=== PATIENT | male | born 1975 | race Hispanic/Latino ===

== ENCOUNTER 2021-10-14 09:13 | Inpatient (IN) | payer OTHER, SELFPAY ==
[2021-10-14] VITALS (11 sets, daily range): BP systolic 127–151; BP diastolic 83–101; PULSE 78–104; RESP 15–16; TEMP 36.1–37; O2SAT 96–99; BMI 36.1
--- NOTE | ~2021-10-14 | US_ITS ---
EXAMINATION: US venous doppler LE EXAM DATE: 10/15/2021 17:22 INDICATION: Chest pain, chest discomfort. r/o dvt TECHNIQUE: Multiple grayscale, color flow and Doppler images of the lower extremity deep venous syste ms bilaterally were obtained and reviewed. There is no prior study for comparison. FINDINGS: RIGHT SIDE Common femoral: --------Not evaluated (bandage from recent procedure). Profunda femoral: ------- Normal. Femoral: Normal. Popliteal: Normal. Posterior tibial: --------- Normal. Peroneal: Normal. Gastrocnemius: Not visualized. Soleus: Not visualized. Greater saphenous: -----Not evaluated. Lesser saphenous: ------ Not visualized. LEFT SIDE Common femoral: -------- Normal. Profunda femoral: ------- Normal. Femoral: Normal. Popliteal: Normal. Posterior tibial: --------- Normal. Peroneal: Normal. Gastrocnemius: Not visualized. Soleus: Not visualized. Greater saphenous: ----- Normal. Lesser saphenous: ------ Not visualized. IMPRESSION: 1. No evidence of lower extremity deep venous thrombosis bilaterally. 2. Right common femoral and greater saphenous veins not evaluated due to bandage from recent vascula r access site. Reviewed, dictated and finalized at location G. OW FABRIC CALENDERER IMPRESSION: 1. No evidence of lower extremity deep venous thrombosis bilaterally. 2. Right common femoral and greater saphenous veins not evaluated due to hutchins ge from recent vascular access site.
--- NOTE | ~2021-10-14 | US_ITS ---
EXAMINATION: US abdomen limited DATE: 10/16/2021 08:56 INDICATION: Elevated liver function tests. TECHNIQUE: Multiple grayscale and Doppler ultrasound images of the abdomen were obtained. COMPARISON: None FINDINGS: The pancreatic head and body are normal in appearance. The pancreatic tail is not visualized. Liver has normal contour, with a smooth surface. There is increased parenchymal echogenicity and coarsened echotexture consistent with diffuse hepatic steatosis. No liver lesion identified. No intrahepatic b iliary duct dilation suspected. Portal venous flow was seen in the hepatopetal, normal direction and has normal Doppler waveform. The gallbladder is normal in appearance. There is no cholelithiasis. Th e common bile duct measures 5 mm, which is normal. Sonographic Godinez sign was reported as negative b y the podiatric surgeon.The visualized proximal inferior vena cava is normal. This is portion of the right kidney demonstrates normal echogenicity with no hydronephrosis. IMPRESSION: 1. Diffuse hepatic steatosis. Reviewed, dictated and finalized at location A. TATION TRUCK CLEANER
--- NOTE | ~2021-10-14 | XR_ITS ---
EXAMINATION: XR chest 2V DATE: 10/14/2021 09:32 INDICATION: Chest pain TECHNIQUE: Frontal and lateral views of the chest are obtained COMPARISON: None available FINDINGS: The lungs are free of acute opacities. There is no pleural effusion or pneumothorax. The ca rdiomediastinal silhouette is normal. The visualized bones and soft tissues are unremarkable. IMPRESSION: 1. No acute cardiopulmonary abnormality. Reviewed, dictated and finalized at location A. CAL APPOINTMENT SCHEDULER
--- NOTE | 2021-10-14 09:16 | ECG_ITS ---
Measurements Intervals [place] Rate: 87 P: 18 MN: 148 QRS: -17 QRSD: 102 T: 23 QT: 387 QTc: 466 Interpretive Statements SINUS RHYTHM BORDERLINE R WAVE PROGRESSION, ANTERIOR LEADS BORDERLINE T WAVE ABNORMALITY- INFERIOR LEADS BASELINE ARTIFACT- II, III, AVR, AVF, V2-V6 BORDERLINE ECG Electronically Signed On 10-16-2021 12:26:29 SILVERWARE CLEANER by Jaxon Sherwood D.O.
[2021-10-14 09:48] LABS: Basophils Percent Auto 0.4 % (0.2-1.2); Eosinophils Absolute Auto 0.1 K/mm3 (0-0.3); Eosinophils Percent Auto 1.1 % (0-4.4); Hematocrit 48.6 % (42.0-52.0); Hemoglobin 16.9 g/dL (14.0-18.0); Immature Granulocyte Absolute 0.03 K/mm3 (0.00-0.031); Immature Granulocyte Percent A 0.3 % (0-0.5); Lymphocytes Absolute Auto 3.74 K/mm3 (0.9-3.2); Lymphocytes Percent Auto 33.8 % (18.3-44.2); Mean Corpuscular HGB Conc 34.8 g/dl (32-36); Mean Corpuscular Hemoglobin 32.6 pg (26-34); Mean Corpuscular Volume 93.6 fl (80-100); Mean Platelet Volume 9.8 fl (7.4-10.4); Monocytes Absolute Auto 0.7 K/mm3 (0.1-0.6); Monocytes Percent Auto 6.1 % (2.6-8.5); Neutrophils Absolute Auto 6.5 K/mm3 (1.3-6.7); Neutrophils Percent Auto 58.3 % (45.5-73.1); Platelet Count Result 322 k/mm3 (150-375); Red Blood Count 5.19 M/mm3 (4.6-6.20); White Blood Count 11.1 K/mm3 (4.5-10.0)
[2021-10-14 09:59] LABS: Alanine Aminotransferase 59 U/L (4-50); Albumin Level 4.4 g/dL (3.5-5.1); Alkaline Phosphatase 134 U/L (38-126); Anion Gap 16 mmol/L (8-16); Aspartate Amino Transferase 66 U/L (17-59); Blood Urea Nitrogen 11 mg/dL (9-20); Calcium 9.7 mg/dL (8.4-10.2); Carbon Dioxide 22 mmol/L (22-30); Chloride 99 mmol/L (98-107); Estimated CRCL calculation 114 ml/min; Estimated Glomerular Filt Rate > 60; Glucose 218 mg/dL (65-110); Lipase 83 U/L (23-300); Potassium 3.6 mmol/L (3.4-5.0); Sodium 137 mmol/L (137-145)
[2021-10-14 10:02] LABS: INR 1.1; Prothrombin Time 13.4 Seconds (11.1-14.7)
[2021-10-14 10:03] LABS: Partial Thromboplastin Time 26.4 SECONDS (22.3-36.8)
--- NOTE | 2021-10-14 10:05 | ED.CHESTPAIN ---
HPI - Chest Pain General Chief Complaint: Chest Pain Stated Complaint: CP Time Seen by Provider: 10/14/21 09:42 Source: patient Mode of arrival: ambulatory Limitations: no limitations History of Present Illness HPI narrative: Patient is 46 years old male presents with soreness across chest after drinking 2 sips of ice coffee at 8 AM today. Started suddenly prior to arrival, 8 out of 10, improved to 4 out of 10 at [place]. Patient still feels uncomfortable. History of diabetes, hypertension, hyperlipidemia, quit smoking 2 years ago, strong family history of coronary artery disease Related Data Home Medications Medication Instructions Recorded Confirmed lisinopril 10/14/21 10/14/21 metformin mg 10/14/21 Allergies Allergy/AdvReac Type Severity Reaction Status Date / Time No Known Allergies Allergy Verified 10/14/21 09:25 Review of Systems Review of Systems: CONSTITUTIONAL: Denies fever, chills, or sweats. EYES: Denies visual changes, redness, or discharge. ENT: Denies rhinorrhea, congestion, sore throat, or otalgia. CARDIOVASCULAR: Denies chest pain, palpitations, or edema. RESPIRATORY: Denies cough or dyspnea. GASTROINTESTINAL: Denies abdominal pain, nausea, vomiting, or diarrhea. GENITOURINARY: Denies dysuria or hematuria. SKIN: Denies rash or itching. MUSCULOSKELETAL: Denies back pain, joint pain, or myalgia. NEUROLOGIC: Denies headache, numbness, or weakness. PSYCHIATRIC: Denies anxiety or depression. Exam Narrative: General appearance: Well-developed, well-nourished Skin: Normal color Head: Normocephalic, nontraumatic Eyes: Clear conjunctiva ENT: Oropharynx normal, ears normal, nose normal Neck: Supple, nontender Chest and respiratory: Airway patent, no respiratory distress, no accessory muscle use Heart: Regular rate/rhythm Abdomen: Soft, nontender, no organomegaly, quiet bowel sounds Vascular: Normal peripheral pulses, normal capillary refill. Musculoskeletal: Normal range of motion, nontender back Neurologic: Alert and oriented ?3, SPECIAL PROGRAMS DIRECTOR is normal as tested, no gross motor deficit Course Course Emergency Course: Patient with chest pain prior to arrival EKG showed subtle ST elevation in lead III, Pain was 8 out of 10, improved to 4 out of 10 on arrival to the ED. Patient received aspirin, nitroglycerin sublingual, Lopressor 25 mg orally, and heparin bolus and drip. Dr. Roberts came to the emergency room, patient evaluated, waiting for the second troponin. Patient to be admitted to IMU for further evaluation Reevaluation(s) Reevaluation #1: Patient still having some soreness across the chest like heartburn 4 out of 10 Date: 10/14/21 Time: 10:52 Consultations Consultation #1: Dr. Sanon Date: 10/14/21 Time: 10:50 Consultation #2: Dr. Roberts Date: 10/14/21 Time: 10:50 Vital Signs Vital signs: Vital Signs Temperature 36.1 C L 10/14/21 09:17 Pulse Rate 89 10/14/21 09:17 Respiratory Rate 16 10/14/21 09:17 Blood Pressure 151/101 H 10/14/21 09:17 Pulse Oximetry 97 10/14/21 09:17 Temperature 36.1 C L 10/14/21 09:17 Pulse Rate 102 H 10/14/21 10:50 Respiratory Rate 16 10/14/21 10:45 Blood Pressure 148/101 H 10/14/21 10:45 Pulse Oximetry 96 10/14/21 10:45 MDM - Chest Pain MDM Narrative Medical decision making narrative: Sudden onset of chest pain, differential diagnosis as below Differential Diagnosis Differential diagnosis: Likely pneumothorax, unstable angina pectoris, atypical chest pain, costochondritis, chest pain and other (Pulmonary embolism) Lab Data Result diagrams: 10/14/21 09:38 10/14/21 09:38 Labs: Lab Results 10/14/21 10/14/2110/14
[2021-10-14 10:13] LABS: D Dimer 0.48 ug/mL (<0.48)
[2021-10-14 10:15] LABS: Troponin I 0.049 ng/mL (0.000-0.034)
--- NOTE | 2021-10-14 10:36 | ECG_ITS ---
Rate 96 HI 123 QRSd 91 QT 366 QTc 464 --[place]-- P 39 QRS 35 T 33 SINUS RHYTHM DELAYED PRECORDIAL R/S TRANSITION BORDERLINE ECG Electronically Signed On 10-16-2021 12:26:42 RAW STOCK MACHINE FEEDER by Jaxon KHAN
[2021-10-14] MEDS: ONDANSETRON INJ 4 MG/2 ML VIAL IV PUSH (10:44)
[2021-10-14] MEDS: MORPHINE SULFATE (*CRX) 4 MG/ML INJ IV PUSH (10:48)
[2021-10-14] MEDS: METOPROLOL TARTRATE 50 MG TAB 25 MG PO (10:50)
[2021-10-14] MEDS: HEPARIN SODIUM 5,000 UNITS/ML VIAL 4000 UNITS IV PUSH ×2 (11:01→17:52)
--- NOTE | 2021-10-14 11:02 | PM.CNCAR ---
Assessment and Plan Additional Plan 46-year-old man reporting symptoms of chest pain that of course raise concern regarding his cardiac status given his risk factors for coronary disease. His ECG does not show any evidence of an acute current of injury 1st troponin level is just barely out of normal range. At this point I do not have an argument for emergency angiography. He should be treated with aspirin, beta-blockers nitrates and statins. We will trend his troponins and provide further recommendations when we see that data. Sp Roberts MD [facility] History of Present Illness History of Present Illness Consult date/time: 10/14/21 11:02 Consult reason: chest pain Reason For Visit: CP Narrative: This is a 46-year-old man I am seeing in the emergency room as we have been summoned by the ED staff to make a decision as to whether the patient should go for an emergency coronary angiogram. 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 He was at a local truck stop where he slept during the night. When he got up to have some breakfast he began to have some chest pain. He thought at 1st this was due to a drinking some iced coffee that he had just had and after he belched the discomfort was alleviated. He had episodes of this off and on which caused him more concern regarding his cardiac status and so he eventually decided he should come to the hospital for evaluation because he did not wish to have an acute coronary event while driving over the road truck. In the emergency room he was apparently having severe chest pain when he arrived. He was given some nitroglycerin, morphine and heparin. Upon my arrival to see him he is having some very mild residual pain he says 1/2 over 10 in severity. He appears to be quite comfortable. His admitting electrocardiogram and 2 subsequent repeat studies do not show any evidence of an acute myocardial infarction. There is some very subtle inferior ST segment changes but no reciprocal depression. He is located in ER room 9. Initial lab data demonstrates a troponin level that is barely out of normal limits at 0.04. He does have coronary risk factors including hypertension and diabetes. He takes lisinopril and metformin. He quit smoking several years ago he smoked for 10 or 15 years before that. There is a history of coronary disease in his mother side of the family. No one has of coronary disease at a premature age. Review of Systems Constitutional: Constitutional: Reports no additional constitutional complaints Eyes: Eyes: Reports no additional eye complaints ENT: Reports system reviewed and no additional complaints, except as documented Cardiovascular: Cardiovascular: Reports as per HPI Respiratory: Respiratory: Reports no additional respiratory complaints Gastrointestinal: Gastrointestinal: Reports as per HPI Musculoskeletal: Musculoskeletal: Reports no additional musculoskeletal complaints Integumentary/Breasts: Skin/Breast: Reports system reviewed and no additional complaints, except as docu Neurologic: Reports system reviewed and no additional complaints, except as documented Endocrine: Endocrine: Reports no additional endocrine complaints Hematologic/Lymphatic: Hematologic/Lymphatic: Reports no additional hematologic/lymphatic complaints Allergic/Immunologic: Allergic/Immunologic: Reports no additional allergic/immunologic complaints Meds Home Medications and Allergies Home Medications Medication Instructions Recorded Confirmed Type lisinopril 10/14/21 10/14/21 History metformin mg 10/14/21 History Allergies Allergy/AdvReac Type Severity Reaction Status Date / Time No Known Allergies Allergy Verified 10/14/21 09:25 Vital Signs Vital Signs - 24 hr 10/14/21 09:17 10/14/21 09:45 10/14/21 10:45 Temperature 36.1 C L Pulse Rate 89 87 98 Respiratory Rate 16 16 16 Blood Pressure 151/101
[2021-10-14] MEDS: HEPARIN SOD/D5W 100 UNITS/ML 25,000 UNITS/250 ML BAG 8 UNITS IV CONT (11:08)
--- NOTE | 2021-10-14 11:44 | PC.NURSE ---
Assumed care of pt. Denies any pain currently. Aware of plan for admission and repeat troponins.
[2021-10-14 12:26] LABS: SARS-CoV-2 RNA PCR Negative
--- NOTE | 2021-10-14 13:26 | PM.IMHP ---
H&P: HPI History of Present Illness Date/Time: 10/14/21 13:26 Chief Complaint: chest pain Narrative: Patient is a 46-year-old a history of hypertension and diabetes mellitus type 2. He presented to the emergency department due to chest pain. Patient reports that he went to constipation this morning and was drinking his coffee when he developed sudden chest pain. He was able to drive a short distance primary admitting emergency department. Upon arrival to the emergency department he was administered nitroglycerin, morphine and heparin. He was noted to be tachycardic. Labs and imaging were obtained. WBC 11.1, hemoglobin 16.1, hematocrit 40.6, platelets 322, D-dimer 0.48, sodium 137, potassium 3.6, BUN 11 and creatinine 0.7. Glucose was elevated to 18. Troponin 0.049. Patient with mildly elevated AST 66, ALT 59, alkaline phosphate 134. Patient reported he had history of alcoholism and drink at least a glass of whiskey a day. Reports he stopped drinking approximately 1 year ago. Patient also reports he was a smoker 1 pack a day, quit approximately 1 year ago. Patient reports poor eating habits and notes he is overweight. Imaging reported no acute cardiopulmonary abnormality. EKG did not reveal significant ST abnormality. Cardiology was consulted from the emergency department he suggested starting the patient on aspirin, beta-blockers, nitrates and statins. At this time they do not believe the patient needs an emergency angiography. Patient is being admitted for observation for further evaluation of acute coronary syndrome. 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 Meds Home Medications and Allergies Home Medications Medication Instructions Recorded Confirmed Type lisinopril 10/14/21 10/14/21 History metformin mg 10/14/21 History Allergies Allergy/AdvReac Type Severity Reaction Status Date / Time No Known Allergies Allergy Verified 10/14/21 09:25 Vital Signs Vital Signs - 24 hr 10/14/21 09:17 10/14/21 09:45 10/14/21 10:45 Temperature 36.1 C L Pulse Rate 89 87 98 Respiratory Rate 16 16 16 Blood Pressure 151/101 H 142/97 H 148/101 H Pulse Oximetry 97 98 96 10/14/21 10:50 10/14/21 11:48 Temperature Pulse Rate 102 H 104 H Respiratory Rate 16 Blood Pressure 149/87 H Pulse Oximetry 99 Exam Const: General: cooperative, healthy appearing, well developed, alert, awake and well groomed Nutritional Appearance: obese Orientation/consciousness: patient oriented x3 Limitations: no limitations HENMT: Head: normal to inspection Eyes: General: appearance normal, both eyes and all related structures Conjunctivae: conjunctivae normal Pupils: Equal, round and reactive pupils present EOM: EOMs intact bilaterally Neck: Neck: normal visual inspection and full ROM Thyroid: thyroid normal Lymphatic: no lymphadenopathy noted Chest: Chest palpation & inspection: normal inspection of the chest Resp: Effort & Inspection: normal respiratory effort and able to speak in complete sentences Auscultation: clear to auscultation bilaterally Cardio: Jugular venous distension: no JVD Palpation: normal PMI Rate: tachycardic Rhythm: regular rhythm Heart sounds: S1 normal heart sound present and S2 normal heart sound present Peripheral pulses: Peripheral pulses 2+ throughout GI: Inspection: normal
--- NOTE | 2021-10-14 14:13 | ADMGEN ---
This patient, Edgar Valdivia, was admitted to IMU Room 206-01. Patient/family oriented to hospital policies and general routines including ID bracelet, bed and alarms, visiting hours, pain management, procedures, bathroom and other care routines, personal items, smoking policy, room service/diet, and visiting hours. Information on how to activate the Rapid Response Team has been discussed. Patient/Family are encouraged to report perceived risks to care and to ask questions if they do not understand what they are told or what they should do.
[2021-10-14 16:00] LABS: Glucose Point of Care 139 mg/dl (65-105)
[2021-10-14] MEDS: METOPROLOL TARTRATE 12.5 MG TABLET PO (20:29)
[2021-10-14 21:23] LABS: Glucose Point of Care 199 mg/dl (65-105)
[2021-10-15] VITALS (22 sets, daily range): BP systolic 122–138; BP diastolic 58–99; PULSE 82–110; RESP 15–21; TEMP 36.1–37; O2SAT 94–100
--- NOTE | 2021-10-15 | ECHO_ITS ---
Patient Info Name: Edgar Valdivia Age: 46 years : 1975 Gender: Male Ht: 62 in Wt: 197 lbs BSA: 2.02 m2 HR: 96 bpm BP: 124 / 85 mmHg Exam Date: 10/15/2021 8:32 AM Exam Location: [facility] Patient Status: Outpatient Admit Date: 10/14/2021 Staff Ordering Physician: Marisela Tidwell APRN Barrel Raiser Helper: Callum Godinez, OLLIE, RT Attending Provider: Craig Wong MD Referring Physician: Yaw SOLIS; Exam Type: CA echo doppler color flow Study Info Indications I21.4 - Non-ST elevation (NSTEMI) myocardial infarction Complete two-dimensional, color flow and Doppler transthoracic echocardiogram is performed. Strain analysis performed. Summary 1. Complete two-dimensional, color flow and Doppler transthoracic echocardiogram is performed. 2. Left ventricular systolic function is normal, estimated at 55-60%. 3. The left ventricular diastolic function is grade I diastolic dysfunction. 4. Hypokinesis of apical septum. Left Ventricle Left ventricular chamber dimension is normal. Left ventricular systolic function is normal, estimated at 55-60%. There is no increased left ventricular wall thickness. Left ventricular septal wall motion is normal. The left ventricular diastolic function is grade I diastolic dysfunction. Global longitudinal strain is abnormal at -14 %. Right Ventricle Right ventricular chamber dimension is normal. Right ventricular systolic function is normal. Left Atria Left atrial chamber dimension is normal. Right Atria Right atrial chamber dimension is normal. Atrial Septum Intact interatrial septum visualized by color flow imaging. Aortic Valve The aortic valve is trileaflet. There is no aortic valve sclerosis. There is no aortic valve stenosis. There is no aortic valve regurgitation. Pulmonic Valve The pulmonic valve is normal. There is no pulmonic valve stenosis. There is no pulmonic regurgitation. Mitral Valve The mitral valve has normal leaflets. There is no mitral valve stenosis. There is no mitral valve regurgitation. Tricuspid Valve The tricuspid valve leaflets are normal. There is no significant tricuspid valve stenosis. There is no tricuspid valve regurgitation. Pericardium/Pleural The pericardium appears normal. There is no pericardial effusion. Inferior Vena Cava Normal inferior vena cava with >50% collapse upon inspiration consistent with normal right atrial pressure, 5 mmHg. Aorta The aortic root size at the sinus of Valsalva is normal. The prox ascending aorta size is normal. Left Ventricular Outflow Tract Name Value Normal LVOT Doppler LVOT Peak Gradient 4 mmHg LVOT Mean Gradient 2 mmHg LVOT VTI 16 cm LVOT VTI/AV VTI Ratio 0.7 Mitral Valve Name Value Normal MV Doppler MV Decel [place] 215 cm/s2 MV PHT
[2021-10-15 00:25] LABS: Partial Thromboplastin Time 51.1 SECONDS (22.3-36.8)
[2021-10-15] MEDS: HEPARIN SOD/D5W 100 UNITS/ML 25,000 UNITS/250 ML BAG 14 UNITS IV CONT (00:45)
[2021-10-15] MEDS: HEPARIN SODIUM 5,000 UNITS/ML VIAL 4000 UNITS IV PUSH (00:50)
[2021-10-15 06:45] LABS: Basophils Absolute Auto 0.1 K/mm3 (0.0-0.1); Basophils Percent Auto 0.4 % (0.2-1.2); Eosinophils Absolute Auto 0.1 K/mm3 (0-0.3); Eosinophils Percent Auto 0.6 % (0-4.4); Hemoglobin 16.4 g/dL (14.0-18.0); Immature Granulocyte Absolute 0.05 K/mm3 (0.00-0.031); Immature Granulocyte Percent A 0.4 % (0-0.5); Lymphocytes Absolute Auto 3.31 K/mm3 (0.9-3.2); Lymphocytes Percent Auto 26.6 % (18.3-44.2); Mean Corpuscular HGB Conc 33.5 g/dl (32-36); Mean Corpuscular Hemoglobin 32.7 pg (26-34); Mean Corpuscular Volume 97.8 fl (80-100); Mean Platelet Volume 9.8 fl (7.4-10.4); Monocytes Absolute Auto 0.9 K/mm3 (0.1-0.6); Monocytes Percent Auto 7.2 % (2.6-8.5); Neutrophils Absolute Auto 8.1 K/mm3 (1.3-6.7); Neutrophils Percent Auto 64.8 % (45.5-73.1); Platelet Count Result 292 k/mm3 (150-375); Red Blood Count 5.01 M/mm3 (4.6-6.20); Red Cell Distribution Width 13.2 % (11.5-14.5); White Blood Count 12.5 K/mm3 (4.5-10.0)
[2021-10-15 06:57] LABS: Hemoglobin A1C 6.8 % (<5.7); Partial Thromboplastin Time 81.4 SECONDS (22.3-36.8)
[2021-10-15 07:00] LABS: Alanine Aminotransferase 71 U/L (4-50); Albumin Level 4.3 g/dL (3.5-5.1); Alkaline Phosphatase 119 U/L (38-126); Anion Gap 7 mmol/L (8-16); Aspartate Amino Transferase 154 U/L (17-59); Bilirubin,Total 1.1 mg/dL (0.2-1.3); Blood Urea Nitrogen 12 mg/dL (9-20); Calcium 9.2 mg/dL (8.4-10.2); Carbon Dioxide 27 mmol/L (22-30); Chloride 100 mmol/L (98-107); Cholesterol 199 mg/dL (0-200); Estimated CRCL calculation 98 ml/min; Estimated Glomerular Filt Rate > 60; Glucose 179 mg/dL (65-110); HDL Direct 33 mg/dL; Potassium 4.3 mmol/L (3.4-5.0); Sodium 134 mmol/L (137-145); Triglycerides 138 mg/dL (<150)
[2021-10-15 07:11] LABS: LDL Cholesterol Direct 139 mg/dL
[2021-10-15 07:25] LABS: Free T4 Free Thyroxine 0.99 ng/mL (0.78-2.19)
[2021-10-15 08:37] LABS: Glucose Point of Care 194 mg/dl (65-105)
[2021-10-15] MEDS: METOPROLOL TARTRATE 12.5 MG TABLET PO (09:00)
[2021-10-15] MEDS: ASPIRIN 81 MG ENTERIC TABLET PO (09:00)
[2021-10-15] MEDS: ATORVASTATIN 40 MG TABLET PO (09:01)
--- NOTE | 2021-10-15 09:28 | WPDHPUPDATE1 ---
History and Physical Update Update Date/Time: 10/15/21 09:28 History and Physical has been reviewed, including an updated exam of the patient. There are NO changes in the patient's condition. Risks, benefits, and alternatives have been discussed and questions answered. Patient agrees to proceed with procedure.
--- NOTE | 2021-10-15 09:28 | WPDMODSED ---
Moderate Sedation Note-Pt Data Patient Data Allergies Allergy/AdvReac Type Severity Reaction Status Date / Time No Known Allergies Allergy Verified 10/14/21 14:43 Home Medications Medication Instructions Recorded Confirmed Type lisinopril 20 mg PO DAILY 10/14/21 10/14/21 History metformin 500 mg PO DAILY 10/14/21 10/14/21 History Current Medications: Active Medications Acetaminophen (Acetaminophen 325 Mg Tablet) 650 mg PO Q4H PRN PRN Reason: Mild Pain (1-3) or Fever Aspirin (Aspirin 81 Mg Enteric Tablet) 81 mg PO QAM [facility] Last Admin: 10/15/21 09:00 Dose: 81 mg Documented by: Atorvastatin Calcium (Atorvastatin 40 Mg Tablet) 40 mg PO DAILY [facility] Last Admin: 10/15/21 09:01 Dose: 40 mg Documented by: Dextrose (Dextrose 50% 25 Gm/50 Ml Syringe) 12.5 gm IV PUSH PRN PRN; Protocol PRN Reason: Hypoglycemia Glucagon (Glucagon For Inj 1 Mg Vial) 1 mg IM PRN PRN; Protocol PRN Reason: Hypoglycemia Glucose (Glucose Oral Gel 15 Gm Of Glucse In 37.5 Gm Tube) 15 gm PO PRN PRN; Protocol PRN Reason: Hypoglycemia Heparin Sodium (Porcine) (Heparin Sodium 5,000 Units/Ml Vial) 4,000 units IV PUSH PRN PRN PRN Reason: aPTT less than 55 seconds Last Admin: 10/15/21 00:50 Dose: 4,000 units Documented by: Heparin Sodium (Porcine) (Heparin Sodium 5,000 Units/Ml Vial) 3,000 units IV PUSH PRN PRN PRN Reason: aPTT 55 - 70 seconds Heparin Sodium/Dextrose (Heparin Sodium/D5w 100 Units/Ml) 25,000 units in 250 mls @ 14 mls/hr IV CONT .[id number] [facility]; Protocol Last Admin: 10/15/21 00:45 Dose: 1,400 units/hr, 14 mls/hr Documented by: Dextrose (Dextrose 5% 1,000 Ml) 1,000 mls @ 100 mls/hr IVPB PRN PRN; Protocol PRN Reason: Hypoglycemia Insulin Aspart (Insulin Aspart (*Bkc) 100 Units/Ml) 2 - 5 units SUB-Q TIDWM [facility]; Protocol Last Admin: 10/15/21 08:21 Dose: Not Given Documented by: Metoprolol Tartrate (Metoprolol Tartrate 12.5 Mg Tablet) 12.5 mg PO Q12HR NIC Last Admin: 10/15/21 09:00 Dose: 12.5 mg Documented by: Morphine Sulfate (Morphine Sulfate (*Crx) 4 Mg/Ml Inj) 4 mg IV PUSH Q2H PRN PRN Reason: Pain Rated 7-10 Nitroglycerin (Nitroglycerin Sl 0.4 Mg Tablet) 0.4 mg SUBLINGUAL Q5MIN PRN PRN Reason: Chest Pain Ondansetron HCl (Ondansetron Inj 4 Mg/2 Ml Vial) 4 mg IV PUSH Q6H PRN PRN Reason: Nausea And Vomiting Perflutren Lipid Microsphere (Perflutren Lipid Microspheres 1.5 Ml Vial Diluted To 10 Ml Total Volume) 0 ml IV PUSH ONCE PRN; Protocol PRN Reason: adequate visualization Sedation/Anesthesia: No previous sedation/anesthesia problems (including family history). [facility] Family History Family History Other No problems noted. 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 Spiritual care concerns: No Mod Sed Physical Exam Physical Exam Pre Procedural Exam: Normal: Appearance, Eyes, Ears, Nose, Neck, Throat, Airway, Lungs, Heart Size, Heart Rate, Heart Rhythm, Neuro Exam, Abdomen, Liver, Kidneys, Spleen, Breasts, Genitalia, Extremities and Skin Hours since solid foods: 8 Hours since liquid intake: 8 Mallampati Classification: class 1 Internal Medicine - PN: Obj Da Vital Signs Vital Signs: Vital Signs - 24 hr 10/14/21 09:45 10/14/21 10:45 10/14/21 10:50 Temperature Pulse Rate 87 98 102 H Respiratory Rate 16 16 Blood Pressure 142/97 H 148/101 H Pulse Oximetry 98 96 10/14/21 11:48 10/14/21 14:15 10/14/21 14:40 Temperature 37.0 C P
--- NOTE | 2021-10-15 09:30 | WPDCARDPROC ---
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 troponins elevated at 6. no significant EKG changes Procedure Procedure performed:: 1-Moderate sedation that started at 9:36 a.m.and ended at 10:32 a.m. total duration 56 minutes using 5mg of Versed and 100 mcg fentanyl. The registered nurse was jb love. 2-Selective left and right coronary angiogram. 3-Left heart catheterization with measurement of LVEDP and measurement of gradient across aortic valve. 4- LV angiogram. 5- aspiration thrombectomy using Penumbra catheter. 6- deployment of a drug-eluting stent Biotronik orsiro mission 3 x 18 covering midportion of diagonal branch. the deployment was done under 14 atmospheres corresponding to size 3.25 mm. 7-Right common femoral arterial angiogram. 8-Deployment of 6 Libyan Angio-Seal. Sedation/Medication given:: Moderate sedation. Access site:: Right common femoral artery. Estimated blood loss:: 10cc Procedure note:: After informed consent patient was brought in to laboratory phlebotomist with the was draped and prepped in usual manner. Moderate sedation was given and the right groin was infiltrated using 1% lidocaine. Five Libyan sheath was obtained using micropuncture needle and the modified Seldinger technique. Selective left coronary angiogram was done using JL3.5 catheter with the tip of the catheter placed in the left main coronary artery. Selective right coronary angiogram was done using JR4 catheter with the tip of the catheter placed to the right coronary artery. After that 5 Libyan pigtail catheter was advanced across the aortic valve into the left ventricle with measurement of LVEDP and measurement of gradient across aortic valve. LV angiogram was done.Right common femoral arterial angiogram was done. After that the 5 Libyan sheath was upgraded to 6 Libyan sheath and then a guide catheter 6 Libyan CLS 3 was advanced and engaged to the left main. Coronary wire 0.014 was advanced to distal diagonal. Aspiration thrombectomy was done using the penumbra catheter. after the balloon angioplasty done using 3 x 15 balloon under nominal pressure for 25 seconds and then deployed drug-eluting stent orsiro mission under 14 atmospheres for 25 seconds corresponding to size 3.25 mm. Findings:: 1- left coronary artery is a large artery that divides into large LAD, large circumflex artery. Left main is free of disease. 2- left anterior descending artery is a large artery that runs and wraps around the apex. Lad has minimal irregularities. The distal end of the LAD near the apex 60% relatively small caliber artery. There is a large diagonal branch and the mid segment there is thrombus. EBENEZER flow 3. 3- leftcircumflex artery is a large artery And codominant. With minimal irregularities at the junction of the PDA there is 50%. 4- right coronary artery is Large artery with diffuse irregularities. 5- LVEDP was 10 mm Hgand no gradient across aortic valve. 6- opening arterial pressure was 140/80and closing pressure was 120/80 7- LV angiogram shows wall motion abnormality involving the apex and the apical inferior wall. Likely this is from distal LAD lesion that looks about 60%. Again the LAD at the apex is small in caliber. 7- right femoral artery angiogram shows no significant disease in the right common femoral artery. Conclusion:: - successful stenting of of mid diagonal branch.. - Distal LAD near the apex 60% small caliber. - 50% stenosis at the juncture of the distal left circumflex artery with left PDA. Assessment and Plan Additional Plan - Continue aspirin and Brilinta. - aggressive risk factor modification for CAD.
--- NOTE | 2021-10-15 10:54 | PM.IMPN ---
Progress Note: A&P Assessment and Plan (1) ACS (acute coronary syndrome): Code(s): I24.9 - Acute ischemic heart disease, unspecified Status: Acute Assessment and Plan: Monitor vital signs, I&Os, chest pain, shortness of breath and patient is a fall risk Monitor PTT, serial troponins, Serum electrolytes, and cbc Keep serum potassium >4 and keep magnesium >2 Cardiology consulted, appreciate assistance and recommendations Pending echocardiogram Patient scheduled for a cardiac catheterization this morning after his troponin jumped up to 6.37ng/ml. Patient denied any chest pain during night worse shortness of breath. Heparin drip stopped, patient will be started on Brilinta. He received 180 mg in laboratory manager. No acute events reported by RN overnight Continue aspirin, metoprolol, and statin by cardiology Lipid panel reviewed (2) Hypertension: Code(s): I10 - Essential (primary) hypertension Status: Acute Assessment and Plan: Resume lisinopril (3) Diabetes mellitus type 2 in obese: Code(s): E11.69 - Type 2 diabetes mellitus with other specified complication; E66.9 - Obesity, unspecified Status: Acute Assessment and Plan: Insulin Lispro sliding scale, Accu-checks qAc and HS and Hold oral hypoglycemics HgbA1c 6.8% (4) Elevated LFTs: Code(s): R79.89 - Other specified abnormal findings of blood chemistry Status: Acute Assessment and Plan: Monitor LFTs, patient has a history of alcoholism. Reported alcohol cessation approximately 1.5-2 years ago. Denies any abdominal pain. T bili WNL Patient denies any history of IV drug use Patient reports he has had a previous discussion about his liver with his PCP in the past. He does not re-call the full discussion. Subjective Date/time seen: 10/15/21 10:54 Patient was evaluated this morning and not appear to be in acute distress. He denies any active chest pain or shortness of breath or any significant events during the night. Patient was getting prepped to go to laboratory manager by the RN. LFTs increased today, continue to monitor. Patient denies any acute abdominal pain. He has been NPO since midnight. After reviewing the chart later in the day the patient has returned from laboratory manager. He was started on Brilinta by Cardiology. Continue current management Review of Systems Review of Systems: All systems reviewed & are unremarkable except as noted in HPI and below Exam Const: General: cooperative, healthy appearing, well developed, alert, awake and well groomed Nutritional Appearance: obese Orientation/consciousness: patient oriented x3 Limitations: no limitations HENMT: Head: normal to inspection Eyes: General: appearance normal, both eyes and all related structures Conjunctivae: conjunctivae normal Pupils: Equal, round and reactive pupils present EOM: EOMs intact bilaterally Neck: Neck: normal visual inspection and full ROM Thyroid: thyroid normal Lymphatic: no lymphadenopathy noted Chest: Chest palpation & inspection: normal inspection of the chest Resp: Effort & Inspection: normal respiratory effort and able to speak in complete sentences Auscultation: clear to auscultation bilaterally Cardio: Jugular venous distension: no JVD Palpation: normal PMI Rate: tachycardic Rhythm: regular rhythm Heart sounds: S1 normal heart sound present and S2 normal heart sound present Peripheral pulses: Peripheral pulses 2+ throughout GI: Inspection: normal to inspection Auscultation: normal bowel sounds Skin: General skin exam: normal color Lesions: no lesions Rashes: no rashes Wounds: no wounds Neuro: General: patient oriented x3 Cranial nerves: Yes Equal, round and reactive pupils present Extrem: General: normal to inspection, full ROM, capillary refill normal and no pedal edema Psych: Appearance: grossly normal Mental Status: mental status grossly normal Speech and movement: Normal speech and movement present Af
--- NOTE | 2021-10-15 12:13 | ECG_ITS ---
Measurements Intervals [place] Rate: 88 P: 18 OR: 144 QRS: -89 QRSD: 93 T: 50 QT: 366 QTc: 445 Interpretive Statements SINUS RHYTHM DELAYED PRECORDIAL R/S TRANSITION BORDERLINE ECG Electronically Signed On 10-16-2021 12:02:58 ANALYTICS DEVELOPER by Jaxon Sherwood D.O. COMPARED TO ECG 10/14/2021 10:36:35 NO SIGNIFICANT CHANGES MTDD
[2021-10-15] MEDS: SODIUM CHLORIDE 0.9% IV 1,000 ML 125 ML IV CONT (13:33)
[2021-10-15 13:55] LABS: Glucose Point of Care 226 mg/dl (65-105)
[2021-10-15 16:58] LABS: Glucose Point of Care 175 mg/dl (65-105)
[2021-10-15 20:18] LABS: Glucose Point of Care 217 mg/dl (65-105)
[2021-10-15] MEDS: TICAGRELOR 90 MG TABLET PO (20:45)
[2021-10-15] MEDS: METOPROLOL TARTRATE 25 MG TABLET PO (20:45)
[2021-10-16] VITALS (7 sets, daily range): BP systolic 122–132; BP diastolic 84–86; PULSE 81–97; RESP 15–16; TEMP 36.6–36.7; O2SAT 98–99; BMI 35.9
[2021-10-16 05:06] LABS: Basophils Percent Auto 0.3 % (0.2-1.2); Eosinophils Absolute Auto 0.1 K/mm3 (0-0.3); Hematocrit 47.9 % (42.0-52.0); Hemoglobin 15.8 g/dL (14.0-18.0); Immature Granulocyte Absolute 0.08 K/mm3 (0.00-0.031); Immature Granulocyte Percent A 0.6 % (0-0.5); Lymphocytes Absolute Auto 3.52 K/mm3 (0.9-3.2); Lymphocytes Percent Auto 27.2 % (18.3-44.2); Mean Corpuscular Hemoglobin 32.6 pg (26-34); Mean Corpuscular Volume 98.8 fl (80-100); Mean Platelet Volume 9.6 fl (7.4-10.4); Monocytes Absolute Auto 1.1 K/mm3 (0.1-0.6); Monocytes Percent Auto 8.3 % (2.6-8.5); Neutrophils Absolute Auto 8.1 K/mm3 (1.3-6.7); Neutrophils Percent Auto 62.6 % (45.5-73.1); Platelet Count Result 269 k/mm3 (150-375); Red Blood Count 4.85 M/mm3 (4.6-6.20); Red Cell Distribution Width 13.2 % (11.5-14.5)
[2021-10-16 05:26] LABS: Alanine Aminotransferase 60 U/L (4-50); Alkaline Phosphatase 91 U/L (38-126); Anion Gap 5 mmol/L (8-16); Aspartate Amino Transferase 93 U/L (17-59); Bilirubin,Total 1.4 mg/dL (0.2-1.3); Blood Urea Nitrogen 12 mg/dL (9-20); Calcium 9.3 mg/dL (8.4-10.2); Carbon Dioxide 29 mmol/L (22-30); Chloride 101 mmol/L (98-107); Estimated CRCL calculation 98 ml/min; Estimated Glomerular Filt Rate > 60; Glucose 147 mg/dL (65-110); Potassium 4.5 mmol/L (3.4-5.0); Sodium 135 mmol/L (137-145)
[2021-10-16 05:45] LABS: Iron 137 ug/dL (49-181)
[2021-10-16 05:56] LABS: Percent Iron Saturation 42 % (20-50)
[2021-10-16 06:27] LABS: Folic Acid 18.5 ng/mL (2.76->20)
[2021-10-16 06:37] LABS: Hepatitis B Surface Antigen Negative (Negative)
[2021-10-16 06:43] LABS: HAV RESULT Negative (Negative); Hepatitis B Core IgM Result Negative (Negative)
[2021-10-16 06:54] LABS: Hepatitis C Virus Antibody Negative (Negative)
[2021-10-16] MEDS: ASPIRIN 81 MG ENTERIC TABLET PO (08:00)
[2021-10-16] MEDS: METOPROLOL TARTRATE 25 MG TABLET PO (08:00)
[2021-10-16] MEDS: TICAGRELOR 90 MG TABLET PO (08:01)
[2021-10-16] MEDS: ATORVASTATIN 40 MG TABLET PO (08:01)
--- NOTE | 2021-10-16 08:29 | PM.DS ---
DS: Admitting Diagnosis Discharge Date Admitting Diagnosis Acute coronary syndrome Hypertension Diabetes mellitus type 2, controlled Elevated LFTs DS: Discharge Diagnosis Discharge Diagnosis (1) ACS (acute coronary syndrome): Code(s): I24.9 - Acute ischemic heart disease, unspecified Status: Acute (2) Hypertension: Code(s): I10 - Essential (primary) hypertension Status: Acute (3) Diabetes mellitus type 2 in obese: Code(s): E11.69 - Type 2 diabetes mellitus with other specified complication; E66.9 - Obesity, unspecified Status: Acute (4) Elevated LFTs: Code(s): R79.89 - Other specified abnormal findings of blood chemistry Status: Acute DS: Summary Hospital Course Reason for hospitalization: Acute coronary syndrome Hospital Course: Patient is a 46-year-old a history of hypertension and diabetes mellitus type 2. He presented to the emergency department due to chest pain. Patient reports that he went to [facility] this morning and was drinking his coffee when he developed sudden chest pain. He was able to drive a short distance primary admitting emergency department. Upon arrival to the emergency department he was administered nitroglycerin, morphine and heparin. He was noted to be tachycardic. Labs and imaging were obtained. WBC 11.1, hemoglobin 16.1, hematocrit 40.6, platelets 322, D-dimer 0.48, sodium 137, potassium 3.6, BUN 11 and creatinine 0.7. Glucose was elevated to 18. Troponin 0.049. Patient with mildly elevated AST 66, ALT 59, alkaline phosphate 134. Patient reported he had history of alcoholism and drink at least a glass of whiskey a day. Reports he stopped drinking approximately 1 year ago. Patient also reports he was a smoker 1 pack a day, quit approximately 1 year ago. Patient reports poor eating habits and notes he is overweight. Imaging reported no acute cardiopulmonary abnormality. EKG did not reveal significant ST abnormality. Cardiology was consulted from the emergency department he suggested starting the patient on aspirin, beta-blockers, nitrates and statins. At that time they did not believe the patient emergency Angiography. The patient was started on a heparin drip his 2nd troponin came back mildly elevated. Cardiology was wearing schedule a cardiac catheterization following day. Patient denied any chest pain or shortness of breath. He denied any discomfort. Prior to cardiac catheterization on 10/15/2021. The patient's troponin elevated to 6 with no significant EKG changes. Patient received 1 drug-eluting stent and a thrombectomy-see cardiac catheterization procedure note. Patient returned to his room and denied chest pain or shortness on breath. Site appears clean and dry. No additional swelling or erythema. Venous duplex of bilateral lower extremities was obtained, negative. Due to the patient's consistently elevated LFTs a limited ultrasound of the liver was performed which revealed diffuse hepatic steatosis. Discussed these findings with the patient and advised him to discuss with his primary care physician in [place]. Patient currently does not have any insurance therefore he is unable to afford Brilinta. Cardiology was made aware by RN. Medications were transitioned to Plavix aspirin, metoprolol, atorvastatin. Continue lisinopril. Status at Discharge Cognitive/behavioral status at discharge: Alert and oriented Functional status at discharge: independent ambulation Overall status at discharge: patient is back to baseline Time Spent with Patient Time attestation: Total time spent providing and/or coordinating discharge services: >35 minutes Time spent: Greater than 30 minutes Exam Const: General: cooperative, healthy appearing, well developed, alert, awake and well groomed Nutritional Appearance: obese Orientation/consciousness: patient oriented x3 Limitations: no limitations HENMT: Head: normal to inspection Eyes: General: a
[2021-10-16 08:57] LABS: Glucose Point of Care 160 mg/dl (65-105)
--- NOTE | 2021-10-16 08:57 | PM.PNCARD ---
Progress Note: A&P Assessment and Plan (1) NSTEMI (non-ST elevated myocardial infarction): Code(s): I21.4 - Non-ST elevation (NSTEMI) myocardial infarction <LINDA More - Last Filed: 10/16/21 11:51> Status: Acute <LINDA More - Last Filed: 10/16/21 11:51> Assessment and Plan: Presented to the hospital with complaints of retrosternal chest pain. He did have a rise in his troponin levels which prompted recommendation for coronary angiogram. He was taken to the [facility] on 10/15/2021 and the following was found: 1- left coronary artery is a large artery that divides into large LAD, large circumflex artery. Left main is free of disease. 2- left anterior descending artery is a large artery that runs and wraps around the apex. Lad has minimal irregularities. The distal end of the LAD near the apex 60% relatively small caliber artery. There is a large diagonal branch and the mid segment there is thrombus. EBENEZER flow 3. 3- leftcircumflex artery is a large artery And codominant. With minimal irregularities at the junction of the PDA there is 50%. 4- right coronary artery is Large artery with diffuse irregularities. 5- LVEDP was 10 mm Hg and no gradient across aortic valve. 6- opening arterial pressure was 140/80and closing pressure was 120/80 7- LV angiogram shows wall motion abnormality involving the apex and the apical inferior wall. Likely this is from distal LAD lesion that looks about 60%. Again the LAD at the apex is small in caliber. 7- right femoral artery angiogram shows no significant disease in the right common femoral artery. Underwent aspiration thrombectomy and deployment of a [place]iro drug-eluting stent to the midportion of the diagonal branch. Doing well today following this procedure. No acute events or complications overnight. He does not have any cardiovascular complaints. Unable to afford Brilinta co-pay so will shift him to Plavix on discharge. Continue aspirin, statin, metoprolol. [place] and recognizes that he needs to establish care with a local organisational psychologist for follow-up. He tells me that his has already identified and contacted the organisational psychologist near his home. Appropriate for discharge home today from a cardiac perspective. <LINDA More - Last Filed: 10/16/21 11:51> (2) CAD (coronary artery disease): Code(s): I25.10 - Atherosclerotic heart disease of [place] coronary artery without angina pectoris <LINDA More - Last Filed: 10/16/21 11:51> Status: Acute <LINDA More - Last Filed: 10/16/21 11:51> Assessment and Plan: Coronary artery disease involving the LAD and the LPDA. Details as above. DAPT with ASA, Plavix. Continue aggressive risk factor modification for CAD. <LINDA More - Last Filed: 10/16/21 11:51> (3) Hypertension: Code(s): I10 - Essential (primary) hypertension <LINDA More - Last Filed: 10/16/21 11:51> Status: Acute <LINDA More - Last Filed: 10/16/21 11:51> Assessment and Plan: At goal. <LINDA More - Last Filed: 10/16/21 11:51> Additional Plan Attending addendum: I agree with the above documentation and plan of care as outlined. <Gerardo Sanon MD - Last Filed: 10/16/21 16:56> Subjective Date/time seen: 10/16/21 08:57 cardiology follow-up for NSTEMI Feeling well status post PCI yesterday. Denies any chest pain, shortness of breath, palpitations. He has ambulated in his room this morning without any difficulty. Denies any dizziness, lightheadedness. No arrhythmias or ectopy noted on telemetry. <LINDA More - Last Filed: 10/16/21 11:51> Review of Systems Constitutional: Constitutional: Reports no additional constitutional complaints <LINDA More - Last Filed: 10/16/21 11:51> Eyes: Eyes: Reports no additional eye complaints <Dari Guerrero
[2021-10-20 11:25] LABS: Ceruloplasmin 34 mg/dL (18-36)
== END 2021-10-16 14:05 | disposition home or self-care (01) | DRG 247 ==
LOC: ANHED 10:55 → ANHIMU 10-15 07:57
PROVIDERS: Internal Medicine Cardiovascular Disease; Specialist; Admitting Provider Internal Medicine; Emergency Provider Emergency Medicine; Visit Provider Nurse Practitioner Family
PROC: 4A023N7 Measurement of Cardiac Sampling and Pressure, Left Heart, Percutaneous Approach (ICD-10-PCS; CPT 93452; principal; 2021-10-15 10:30)
PROC: 027034Z Dilation of Coronary Artery, One Artery with Drug-eluting Intraluminal Device, Percutaneous Approach (ICD-10-PCS; CPT 92973; 2021-10-15 10:30)
PROC: 027034Z Dilation of Coronary Artery, One Artery with Drug-eluting Intraluminal Device, Percutaneous Approach (ICD-10-PCS; 2021-10-15 10:30)
PROC: 027034Z Dilation of Coronary Artery, One Artery with Drug-eluting Intraluminal Device, Percutaneous Approach (ICD-10-PCS; 2021-10-15 10:30)
DX: I21.4 Non-ST elevation (NSTEMI) myocardial infarction (principal); I25.10 Atherosclerotic heart disease of native coronary artery without angina pectoris; I10 Essential (primary) hypertension; E11.9 Type 2 diabetes mellitus without complications; R79.89 Other specified abnormal findings of blood chemistry; E66.9 Obesity, unspecified; Z68.35 Body mass index [BMI] 35.0-35.9, adult; Z87.891 Personal history of nicotine dependence; Z20.822 Contact with and (suspected) exposure to COVID-19
CPT/HCPCS: 36415; 71046; 76705; 80048; 80053; 80061; 80074; 80076; 82390; 82607; 82728; 82746; 82948; 83036; 83540; 83550; 83690; 83735; 84439; 84443; 84484; 85025; 85380; 85610; 85730; 86038; 92973; 93005; 93306; 93458; 93970; 96374; 96375; 99285; A9270; C1725; C1760; C1769; C1874; C1887; C1894; C9600; C9803; G0269; J0583; J1644; J2250; J2270; J2405; J3010; J7030; J7040; U0003; U0005